=== PATIENT | male | born 1950 | race Caucasian/White ===

== ENCOUNTER 2019-04-06 08:47 | Inpatient (IN) | payer MEDICARE ==
[~2019-04-06] VITALS: Ht 182.9 cm; Wt 90.7 kg
--- NOTE | 2019-04-06 09:11 | PHYS DOC ---
Adult General Chief Complaint Chief Complaint: Congestion HPI HPI Patient is a 68 year old male patient without history of medical problem who presents with complaint of cough and congestion. Patient complaining of produ ctive cough with yellow sputum for the last one week associated with exertional shortness of breath or nasal congestion and sinus pressure, episodes of chills, decrease of appetite, generalized weakness. Patient denies chest pain, fever, nausea and vomiting, diarrhea, urinary symptom. Patient had sick contacts at home. Patient smokes 1.5 PPD x50. Patient had O2 sats of 92-3% at arrival to ER. Review of Systems Review of Systems Constitutional: Denies fever, reports chills [] Eyes: Denies change in visual acuity, redness, or eye pain [] HENT: Reports nasal congestion Respiratory: Reports cough and shortness of breath Cardiovascular: No additional information not addressed in HPI [] GI: Denies abdominal pain, nausea, vomiting, bloody stools or diarrhea [] : Denies dysuria or hematuria [] Musculoskeletal: Denies back pain or joint pain [] Integument: Denies rash or skin lesions [] Neurologic: Denies headache, focal weakness or sensory changes [] Endocrine: Denies polyuria or polydipsia [] All other systems were reviewed and found to be within normal limits, except as documented in this note. Current Medications Current Medications Current Medications Medications (Trade) Dose Ordered Sig/Jennifer Start Time Stop Time Status Last Admin Dose Admin Albuterol/ Ipratropium (Duoneb) 3 ml 1X ONCE 04/06/19 09:15 04/06/19 09:16 DC 04/06/19 09:27 3 ML Ceftriaxone Sodium (Rocephin) 1 gm 1X ONCE 04/06/19 10:15 04/06/19 10:16 DC 04/06/19 10:15 1 GM Methylprednisolone Sodium Succinate (SOLU-Medrol 125MG VIAL) 125 mg 1X ONCE 04/06/19 09:15 04/06/19 09:16 DC 04/06/19 09:30 125 MG Nicotine (Nicoderm Cq 21mg) 1 patch 1X STAT 04/06/19 10:26 04/06/19 10:28 DC 04/06/19 10:36 1 PATCH Sodium Chloride 1,000 ml @ 1,000 mls/hr 1X ONCE 04/06/19 10:15 04/06/19 11:14 04/06/19 10:14 1,000 MLS/HR Allergies Allergies Allergies Coded Allergies Type Severity Reaction Last Updated Verified No Known Drug Allergies 04/06/19 No Physical Exam Physical Exam Constitutional: Well developed, well nourished, mild distress, non-toxic appearance. [] HENT: Normocephalic, atraumatic, bilateral external ears normal, oropharynx moist, pharyngeal erythema, no oral exudates, nose normal. [] Eyes: PERRLA, EOMI, conjunctiva normal, no discharge. [] Neck: Normal range of motion, no tenderness, supple, no stridor. [] Cardiovascular:Heart rate regular rhythm, no murmur [] Lungs & Thorax: No respiratory distress, bilateral wheezing. Abdomen: Bowel sounds normal, soft, no tenderness, no masses, no pulsatile masses. [] Skin: Warm, dry, no erythema, no rash. [] Back: No tenderness, no CVA tenderness. [] Extremities: No tenderness, no cyanosis, no clubbing, ROM intact, no edema. [] Neurologic: Alert and oriented X 3, normal motor function, normal sensory function, no focal deficits noted. [] Psychologic: Affect normal, judgement normal, mood normal. [] Current Patient Data Vital Signs Vital Signs Date Time Temp Pulse Resp B/P (MAP) Pulse Ox O2 Delivery O2 Flow Rate FiO2 04/06/19 09:43 76 141/76 (97) 93 Room Air 04/06/19 08:52 98.9 20 98.9 Lab Values Laboratory Tests Test 04/06/19 09:10 04/06/19 09:17 Influenza Type A Antigen Negative (NEGATIVE) Influenza Type B Antigen Negative (NEGATIVE) White Blood Count 8.9 x10^3/uL (4.0-11.0) Red Blood Count 5.20 x10^6/uL (4.30-5.70) Hemoglobin 16.4 g/dL (13.0-17.5) Hematocrit 48.1 % (39.0-53.0) Mean Corpuscular Volume 93 fL (79-100) Mean Corpuscular Hemoglobin 32 pg (25-35) Mean Corpuscular Hemoglobin Concent 34 g/dL (31-37) Red Cell Distribution Width 14.0 % (11.5-14.5) Platelet Count 206 x10^3/uL (140-400) Neutrophils (%) (Auto) 75 % (31-73) H Lymphocytes (%) (Auto) 15 % (24-48) L Monocytes (%) (Auto) 9 % (0-9) Eosinophils (%) (Auto) 1 % (0-3) Basophils (%) (Auto) 1 % (0-3) Neutrophils # (Auto) 6.7 x10^3/uL (1.8-7.7) Lymphocytes # (Auto) 1.3 x10^3/uL (1.0-4.8) Monocytes # (Auto) 0.8 x10^3/uL (0.0-1.1) Eosinophils # (Auto) 0.0 x10^3/uL (0.0-0.7) Basophils # (Auto) 0.1 x10^3/uL (0.0-0.2) Sodium Level 140 mmol/L (136-145) Potassium Level 4.4 mmol/L (3.5-5.1) Chloride Level 99 mmol/L (98-107) Carbon Dioxide Level 34 mmol/L (21-32) H Anion Gap 7 (6-14) Blood Urea Nitrogen 10 mg/dL (8-26) Creatinine 0.8 mg/dL (0.7-1.3) Estimated GFR (Cockcroft-Gault) 95.6 BUN/Creatinine Ratio 13 (6-20) Glucose Level 105 mg/dL (70-99) H Lactic Acid Level 1.6 mmol/L (0.4-2.0) Calcium Level 9.2 mg/dL (8.5-10.1) Total Bilirubin 0.6 mg/dL (0.2-1.0) Aspartate Amino Transferase (AST) 19 U/L (15-37) Alanine Aminotransferase (ALT) 10 U/L (16-63) L Alkaline Phosphatase 66 U/L (46-116) Creatine Kinase 42 U/L (39-308) Troponin I Quantitative < 0.017 ng/mL (0.000-0.055) CB-Gul-W-Type Natriuretic Peptide 242 pg/mL (0-124) H Total Protein 7.3 g/dL (6.4-8.2) Albumin 3.5 g/dL (3.4-5.0) Albumin/Globulin Ratio 0.9 (1.0-1.7) L Laboratory Tests 04/06/19 09:17 Laboratory Tests 04/06/19 09:17 EKG EKG EKG interpreted by me. EKG at 0914 showed normal sinus rhythm at rate of 72, PVC,s, poor R-wave progress in anteroseptal leads, no acute ST and T-wave elevation. Radiology/Procedures Radiology/Procedures [facility] [address] [place], [place] [id number] IMAGING REPORT Signed PATIENT: YADIRA ARMIJO ACCOUNT: [id number] : 1950 LOCATION: ER AGE: 68 SEX: M EXAM STATUS: REG ER ORD. PHYSICIAN: ANNIKA ROMERO MD REASON: cough and shortness of breath PROCEDURE: CHEST PA & LATERAL Chest, PA and Lateral: Technique: PA and lateral views of the chest were obtained. History: Cough, shortness of breath. Comparison: None. Findings: The heart and pulmonary vasculature appear within normal limits. Hyperinflated lungs likely changes of COPD. Mild bibasilar lung airspace opacities likely atelectasis or infiltrates.. The pleural margins are clear. Impression: 1. Mild bibasilar lung airspace opacities likely atelectasis or infiltrates. 2. Mild hyperinflated lungs.. Electronically signed by: Floyd Mirza MD (04/06/2019 9:36 AM) [facility] DICTATED and SIGNED BY: FLOYD MIRZA MD DATE: 04/06/19935 Course & Med Decision Making Course & Med Decision Making Pertinent Labs and Imaging studies reviewed. (See chart for details) Evaluation of patient in ER showed 68-year-old male patient with long-standing history previous smoking without known diagnosis of COPD or other medical problem with complaining of cough and congestion and shortness of breath for the last 1 week after he had sick contacts at home. Patient had O2 sat of 92% at arrival to ER that dropped to 88% with mild activity. Chest x-ray was questionable for atelectasis versus infiltration. White count without lactic acid was unremarkable. Patient treated with DuoNeb, Solu-Medrol, IV fluid and Zofran with improvement of his condition. Because of hypoxia plan to admit patient. Patient requiring admission for further evaluation and treatment. Discussed with Dr. Chan who is in agreement with admission. Discussed findings and plan with patient and family, who acknowledge understanding and agreement. Dragon Disclaimer Dragon Disclaimer This electronic medical record was generated, in whole or in part, using a voice recognition dictation system. Departure Departure Impression: Primary Impression: COPD exacerbation Additional Impressions: Hypoxia Tobacco dependency Elevated brain natriuretic peptide (BNP) level Disposition: ADMITTED INPATIENT (at 1039) Admitting Physician: Sergio Chan (accepted admission at 1038, recommended to consult phone representative.) Condition: IMPROVED Problem Qualifiers ANNIKA ROMERO MD Apr 06, 2019 09:11
[2019-04-06] MEDS ORDERED: IPRATRPIUM/ALBUTEROL 0.5/2.5MG 3 ML NEBU. NEB ONE (09:15)
[2019-04-06] MEDS ORDERED: methylPREDNISolone SOD SUCC PF 125 MG/2 ML VIAL. IV ONE (09:15)
[2019-04-06 09:31] LABS: BASO # 0.1 x10^3/uL (0.0-0.2); BASO % 1 % (0-3); EOS % 1 % (0-3); HEMATOCRIT 48.1 % (39.0-53.0); HEMOGLOBIN 16.4 g/dL (13.0-17.5); LYMPH # 1.3 x10^3/uL (1.0-4.8); LYMPH % 15 % (24-48); MEAN CORPUSCULAR HEMOGLOBIN 32 pg (25-35); MEAN CORPUSCULAR HGB CONC 34 g/dL (31-37); MEAN CORPUSCULAR VOLUME 93 fL (79-100); MONO # 0.8 x10^3/uL (0.0-1.1); MONO % 9 % (0-9); NEUT # 6.7 x10^3/uL (1.8-7.7); NEUT % 75 % (31-73); PLATELET COUNT 206 x10^3/uL (140-400); WHITE BLOOD COUNT 8.9 x10^3/uL (4.0-11.0)
--- NOTE | 2019-04-06 09:39 | RAD ---
Chest, PA and Lateral: Technique: PA and lateral views of the chest were obtained. History: Cough, shortness of breath. Comparison: None. Findings: The heart and pulmonary vasculature appear within normal limits. Hyperinflated lungs likely changes of COPD. Mild bibasilar lung airspace opacities likely atelectasis or infiltrates.. The pleural margins are clear. Impression: 1. Mild bibasilar lung airspace opacities likely atelectasis or infiltrates. 2. Mild hyperinflated lungs.. Electronically signed by: Floyd Mirza MD (04/06/2019 9:36 AM) [facility]
[2019-04-06 09:41] LABS: CALCIUM 9.2 mg/dL (8.5-10.1); CREATININE 0.8 mg/dL (0.7-1.3); GFR 95.6; POTASSIUM 4.4 mmol/L (3.5-5.1)
[2019-04-06 09:49] LABS: INFLUENZA A PATIENT NEGATIVE (NEGATIVE); INFLUENZA B PATIENT NEGATIVE (NEGATIVE)
[2019-04-06 09:55] LABS: ALBUMIN 3.5 g/dL (3.4-5.0); ALBUMIN/GLOBULIN RATIO 0.9 (1.0-1.7); TOTAL BILIRUBIN 0.6 mg/dL (0.2-1.0); TOTAL PROTEIN 7.3 g/dL (6.4-8.2)
[2019-04-06] MEDS ORDERED: cefTRIAXone IV Push 1 GM VIAL. IVP ONE (10:15)
[2019-04-06] MEDS ORDERED: IV NORMAL SALINE 1000ML BAG 1,000 ML IV ONE (10:15)
[2019-04-06] MEDS ORDERED: NICOTINE 21MG PATCH. TD STA (10:26)
--- NOTE | 2019-04-06 11:18 | PDOC ---
Provider Note Provider Note history and physical dictated # [id number] JOSE MEZA MD Apr 06, 2019 11:18
[2019-04-06] MEDS ORDERED: AZITHROMYCIN 250 MG TABLET. PO ONE (11:30)
[2019-04-06] MEDS ORDERED: ACETAMINOPHEN 325 MG TABLET. PO PRN (11:30)
--- NOTE | 2019-04-06 11:40 | HP ---
ADMIT DATE: 04/06/2019 LOCATION: He will be going to room #664. HISTORY OF PRESENT ILLNESS: The patient is a 68-year-old white male who smokes 1-1/2 packs per day for 50 years. Notes a 1-week history of a cough productive of slightly yellow sputum without hemoptysis, who has dyspnea on exertion, shortness of breath at rest and some wheezing. He sought help at the [facility] Emergency Room with the Emergency Room doctor stated that oxygen saturations are around 88% while he was moving around on room air. He was started on oxygen 2 liters per nasal cannula. In addition, his chest x-ray showed evidence of COPD with hyperinflation of the lungs and bibasilar airspace opacities, atelectasis versus lung infiltrates. He denied any fever, chills or sweats or hemoptysis. He is therefore admitted for further evaluation of his COPD exacerbation and possible pneumonia versus acute bronchitis. ALLERGIES AND INTOLERANCES: None. MEDICATIONS: Include vitamin C 500 mg b.i.d., multiple vitamin once a day and aspirin 81 mg every day. PAST MEDICAL HISTORY: Significant for an appendectomy, tonsillectomy. He denies any history of diabetes mellitus, hypertension, hyperlipidemia, myocardial infarction, cerebrovascular accident, congestive heart failure, rheumatic fever, syncope, seizures, peptic ulcer disease, asthma, kidney stones, bleeding disorders or viral hepatitis. SOCIAL HISTORY: He drinks alcohol occasionally and smokes 1/2 pack of cigarettes a day for 50 years. He is . FAMILY HISTORY: Noncontributory. REVIEW OF SYSTEMS: GENERAL: He denies any fever, chills or sweats in the last 3 days. CARDIOVASCULAR: No chest pain. PULMONARY: Had shortness of breath and cough. GASTROINTESTINAL: No constipation. ENDOCRINE: No diabetes mellitus. SKIN: No rashes. The rest of systems reviewed are negative except as stated in history of present illness. PHYSICAL EXAMINATION: VITAL SIGNS: Temperature is 98.9 degrees, apical pulse regular 84, respiratory rate is 20, blood pressure is 148/92 and his oxygen saturation 93% on 3 liters per nasal cannula. HEENT: Eyes: Gaze is conjugate. Extraocular muscles are intact. Mouth: Tongue is midline. NECK: Shows no cervical lymphadenopathy or thyroid enlargement or carotid bruits. HEART: Reveals an S1, S2. There is no S3 or murmur. LUNGS: Reveal decreased breath sounds bilaterally with expiratory wheezes. ABDOMEN: Soft with no hepatosplenomegaly, masses or tenderness. EXTREMITIES: Lower extremities without edema. SKIN: No rashes. Examination of his feet, both feet are warm. NEUROLOGIC: Reveals no focal weakness in arms or legs. LABORATORY DATA: Review of his laboratory tests; his white count is 8.9, hemoglobin 16.4 with a platelet count 206,000, 75 polys and 15 lymphocytes. Sodium 140, potassium 4.4, chloride 99, total CO2 of 34, BUN 10, creatinine 0.8, blood sugar 105. Liver function tests normal. Troponin level less than 0.017. ProBNP of 242. Albumin 3.5. Lactic acid level 1.6. Influenza A and B were screen was negative. The chest x-ray showed hyperinflation with mild bibasilar lung opacities consistent with atelectasis in lung infiltrates. Electrocardiogram showed normal sinus rhythm with no acute change. ASSESSMENT: 1. Chronic obstructive pulmonary disease exacerbation secondary to acute bronchitis. 2. Acute bronchitis. 3. Acute hypoxic respiratory failure. PLAN: At this time is to admit him to the hospital as a full admit for IV antibiotics and a sputum culture. We will also treat him with budesonide and DuoNeb nebulize treatments and IV Solu-Medrol. We will also get a CAT scan of the chest to rule out any type of lung mass and also rule out pneumonia. Can order SCDs for deep vein thrombosis prophylaxis. He was told to discontinue his baby aspirin because he does not have any previous history of stroke or myocardial infarction or transient ischemic attack or peripheral arterial disease. Consult Dr. Sexton for Pulmonary. Continue with his oxygen. We will also get an echocardiogram. JOSE MEZA MD DR: ANNA/sarah JOB#: [id number] / [id number]
[2019-04-06] MEDS: IPRATRPIUM/ALBUTEROL 0.5/2.5MG 3 ML NEBU. NEB SCH ×3 (12:00→20:49)
[2019-04-06] MEDS: NICOTINE 21MG PATCH. TD SCH (12:00)
[2019-04-06 12:06] VITALS: BP 140/80
--- NOTE | 2019-04-06 13:24 | PDOC ---
PULMONARY PROGRESS NOTES Vitals Vital Signs Date Time Temp Pulse Resp B/P (MAP) Pulse Ox O2 Delivery O2 Flow Rate FiO2 04/06/19 12:06 98.3 94 20 140/80 (100) 94 Nasal Cannula 3.0 98.3 Labs Laboratory Tests Test 04/06/19 09:10 04/06/19 09:17 Influenza Type A Antigen Negative (NEGATIVE) Influenza Type B Antigen Negative (NEGATIVE) White Blood Count 8.9 x10^3/uL (4.0-11.0) Red Blood Count 5.20 x10^6/uL (4.30-5.70) Hemoglobin 16.4 g/dL (13.0-17.5) Hematocrit 48.1 % (39.0-53.0) Mean Corpuscular Volume 93 fL (79-100) Mean Corpuscular Hemoglobin 32 pg (25-35) Mean Corpuscular Hemoglobin Concent 34 g/dL (31-37) Red Cell Distribution Width 14.0 % (11.5-14.5) Platelet Count 206 x10^3/uL (140-400) Neutrophils (%) (Auto) 75 % (31-73) Lymphocytes (%) (Auto) 15 % (24-48) Monocytes (%) (Auto) 9 % (0-9) Eosinophils (%) (Auto) 1 % (0-3) Basophils (%) (Auto) 1 % (0-3) Neutrophils # (Auto) 6.7 x10^3/uL (1.8-7.7) Lymphocytes # (Auto) 1.3 x10^3/uL (1.0-4.8) Monocytes # (Auto) 0.8 x10^3/uL (0.0-1.1) Eosinophils # (Auto) 0.0 x10^3/uL (0.0-0.7) Basophils # (Auto) 0.1 x10^3/uL (0.0-0.2) Sodium Level 140 mmol/L (136-145) Potassium Level 4.4 mmol/L (3.5-5.1) Chloride Level 99 mmol/L (98-107) Carbon Dioxide Level 34 mmol/L (21-32) Anion Gap 7 (6-14) Blood Urea Nitrogen 10 mg/dL (8-26) Creatinine 0.8 mg/dL (0.7-1.3) Estimated GFR (Cockcroft-Gault) 95.6 BUN/Creatinine Ratio 13 (6-20) Glucose Level 105 mg/dL (70-99) Lactic Acid Level 1.6 mmol/L (0.4-2.0) Calcium Level 9.2 mg/dL (8.5-10.1) Total Bilirubin 0.6 mg/dL (0.2-1.0) Aspartate Amino Transf (AST/SGOT) 19 U/L (15-37) Alanine Aminotransferase (ALT/SGPT) 10 U/L (16-63) Alkaline Phosphatase 66 U/L (46-116) Creatine Kinase 42 U/L (39-308) Troponin I Quantitative < 0.017 ng/mL (0.000-0.055) YW-Vyl-H-Type Natriuretic Peptide 242 pg/mL (0-124) Total Protein 7.3 g/dL (6.4-8.2) Albumin 3.5 g/dL (3.4-5.0) Albumin/Globulin Ratio 0.9 (1.0-1.7) Laboratory Tests Test 04/06/19 09:10 04/06/19 09:17 Influenza Type A Antigen Negative (NEGATIVE) Influenza Type B Antigen Negative (NEGATIVE) White Blood Count 8.9 x10^3/uL (4.0-11.0) Red Blood Count 5.20 x10^6/uL (4.30-5.70) Hemoglobin 16.4 g/dL (13.0-17.5) Hematocrit 48.1 % (39.0-53.0) Mean Corpuscular Volume 93 fL (79-100) Mean Corpuscular Hemoglobin 32 pg (25-35) Mean Corpuscular Hemoglobin Concent 34 g/dL (31-37) Red Cell Distribution Width 14.0 % (11.5-14.5) Platelet Count 206 x10^3/uL (140-400) Neutrophils (%) (Auto) 75 % (31-73) Lymphocytes (%) (Auto) 15 % (24-48) Monocytes (%) (Auto) 9 % (0-9) Eosinophils (%) (Auto) 1 % (0-3) Basophils (%) (Auto) 1 % (0-3) Neutrophils # (Auto) 6.7 x10^3/uL (1.8-7.7) Lymphocytes # (Auto) 1.3 x10^3/uL (1.0-4.8) Monocytes # (Auto) 0.8 x10^3/uL (0.0-1.1) Eosinophils # (Auto) 0.0 x10^3/uL (0.0-0.7) Basophils # (Auto) 0.1 x10^3/uL (0.0-0.2) Sodium Level 140 mmol/L (136-145) Potassium Level 4.4 mmol/L (3.5-5.1) Chloride Level 99 mmol/L (98-107) Carbon Dioxide Level 34 mmol/L (21-32) Anion Gap 7 (6-14) Blood Urea Nitrogen 10 mg/dL (8-26) Creatinine 0.8 mg/dL (0.7-1.3) Estimated GFR (Cockcroft-Gault) 95.6 BUN/Creatinine Ratio 13 (6-20) Glucose Level 105 mg/dL (70-99) Lactic Acid Level 1.6 mmol/L (0.4-2.0) Calcium Level 9.2 mg/dL (8.5-10.1) Total Bilirubin 0.6 mg/dL (0.2-1.0) Aspartate Amino Transf (AST/SGOT) 19 U/L (15-37) Alanine Aminotransferase (ALT/SGPT) 10 U/L (16-63) Alkaline Phosphatase 66 U/L (46-116) Creatine Kinase 42 U/L (39-308) Troponin I Quantitative < 0.017 ng/mL (0.000-0.055) UN-Lpu-L-Type Natriuretic Peptide 242 pg/mL (0-124) Total Protein 7.3 g/dL (6.4-8.2) Albumin 3.5 g/dL (3.4-5.0) Albumin/Globulin Ratio 0.9 (1.0-1.7) Impression . note dictated agree wtih current rx ct pending NIHARIKA COATS MD Apr 06, 2019 13:24
[2019-04-06] MEDS: methylPREDNISolone SOD SUCC PF 40 MG/ML VIAL. IV SCH ×2 (14:00→21:23)
--- NOTE | 2019-04-06 15:18 | RAD ---
Examination: CT chest without contrast HISTORY: History of pneumonia, lung mass COMPARISON: None available TECHNIQUE: Axial CT images of the chest were performed without contrast. Coronal and sagittal reformats are performed Exposure: One or more of the following individualized dose reduction techniques were utilized for this examination: 1. Automated exposure control 2. Adjustment of the mA and/or kV according to patient size 3. Use of iterative reconstruction technique FINDINGS: There is a 2 cm hypodense nodule identified in the right lobe of the thyroid gland. The central airways are patent. The ascending aorta measures 4 cm in transverse dimension. Coronary artery calcifications identified. No radiologically significant mediastinal lymphadenopathy. Mild hyperinflated bilateral lungs. Mild bibasilar lung atelectasis. There is a 5 mm nodule identified in the right middle lobe and right lower lobe of the lung. The visualized noncontrasted liver, spleen, adrenals grossly appears unremarkable. The stomach is mildly distended Partially visualized minimal fat stranding identified about the bilateral kidneys. Punctate 2 mm calculus right kidney. Mild degenerative changes thoracic spine. IMPRESSION: 1. 5 mm nodule identified in the right middle lobe of the lung and right lower lobe of the lung. Follow-up per Fleischner Society guidelines with a follow-up CT in 6-12 months. 2. Mild hyperinflated lungs. 3. Punctate 2 mm calculus right kidney. There is minimal fat stranding identified about the bilateral kidneys, nonspecific could be due to medical renal disease or urinary tract infection. Correlate with urine analysis. 4. Mild ascending aortic aneurysm. 5. 2 cm hypodense nodule identified in the right lobe of the thyroid gland. Recommend follow-up nonemergent ultrasound thyroid. Electronically signed by: Floyd Mirza MD (04/06/2019 3:16 PM) [facility]
[2019-04-06 15:45] VITALS: BP 124/81
[2019-04-06 19:35] VITALS: BP 117/71
[2019-04-06] MEDS: BUDESONIDE 0.5 MG/2 ML NEBU. NEB SCH (20:49)
[2019-04-06] MEDS: FAMOTIDINE 20 MG TABLET. PO SCH (21:23)
--- NOTE | 2019-04-06 22:13 | CONS ---
DATE OF CONSULTATION: 04/06/2019 ATTENDING PHYSICIAN: Sergio Chan MD REASON FOR CONSULTATION: The patient was seen in pulmonary consultation at the request of Dr. Chan for increasing shortness of air and chest x-ray abnormality. HISTORY OF PRESENT ILLNESS: The patient is a 68-year-old with a history of tobacco use 1-1/2 packs of 50 years. No documented history of COPD, no acute exacerbations of COPD in the last several years. In fact, he has never been in the hospital with lung disease. He presented with increasing shortness of breath, cough productive of discolored sputum. His had similar type of symptoms. The patient is up-to-date on his Pneumovax. He has not had his flu vaccination. Upon arrival to the Emergency Room, he was severely short of breath, using accessory muscles to breathe. He was evaluated and admitted. His serology for influenza was negative. His electrolytes were noted. White count was normal. Chest x-ray revealed basilar infiltrates. I was asked to see him in consultation. PAST MEDICAL HISTORY: Otherwise unremarkable. No prior coronary artery disease. It is just remarkable for COPD, tobacco dependence. REVIEW OF SYSTEMS: CONSTITUTIONAL: No fever or chills. EYES: No change in visual acuity. HENT: No nasal congestion or sore throat. PULMONARY: As indicated above. CARDIOVASCULAR: No chest pain or pressure. GASTROINTESTINAL: No nausea, vomiting, diarrhea. GENITOURINARY: No dysuria or frequency. MUSCULOSKELETAL: No localized muscle aches or joint pains. SKIN: No new skin rashes. NEUROLOGIC: No headaches, diplopia or blurred vision. SOCIAL HISTORY: He continues to smoke. No history of alcoholism. FAMILY HISTORY: No family history of lung disorders. CURRENT MEDICATIONS: List was reviewed. ALLERGIES: No known drug allergies. PHYSICAL EXAMINATION: GENERAL: The patient appeared to be as his stated age. VITAL SIGNS: Stable. Current saturation on 3 liters was 91%. HEENT: Eyes, the sclerae were nonicteric. NECK: Jugular venous distention was not elevated. No lymphadenopathy. CHEST: Full expansion. LUNGS: Coarse breath sounds, rales in the bases. CARDIOVASCULAR: Regular rate and rhythm with S1, S2, no S3. ABDOMEN: Soft, nontender, nondistended. EXTREMITIES: No clubbing, cyanosis or edema. NEUROLOGICAL: The patient was awake, alert, following commands. A detailed neuro exam was not performed. LABORATORY DATA: Labs and chest x-ray reviewed as indicated above. IMPRESSION: 1. Progressive dyspnea secondary to acute exacerbation of chronic obstructive pulmonary disease. 2. Clinical pneumonia, chest x-ray abnormal with basilar infiltrates compatible with pneumonia, possible gram negative. 3. Acute nonspecific bronchitis. 4. Acute respiratory failure. PLAN: 1. Continue current IV antibiotics and steroids. 2. CT chest. 3. Outpatient polysomnogram. 4. Follow up in the office once the patient is discharged from the hospital. He will require a 6-minute walk prior to discharge. I do appreciate the privilege in sharing in his care. NIHARIKA COATS MD DR: ROLO/sarah JOB#: [id number] / [id number]
[2019-04-06 23:35] VITALS: BP 121/61
[2019-04-07 03:35] VITALS: BP 114/62
[2019-04-07 05:28] LABS: BASO % 0 % (0-3); EOS % 0 % (0-3); HEMATOCRIT 43.7 % (39.0-53.0); HEMOGLOBIN 14.7 g/dL (13.0-17.5); LYMPH # 0.6 x10^3/uL (1.0-4.8); LYMPH % 7 % (24-48); MEAN CORPUSCULAR HEMOGLOBIN 31 pg (25-35); MEAN CORPUSCULAR HGB CONC 34 g/dL (31-37); MEAN CORPUSCULAR VOLUME 92 fL (79-100); MONO # 0.3 x10^3/uL (0.0-1.1); MONO % 3 % (0-9); NEUT # 7.9 x10^3/uL (1.8-7.7); NEUT % 90 % (31-73); PLATELET COUNT 198 x10^3/uL (140-400); RED BLOOD COUNT 4.73 x10^6/uL (4.30-5.70); RED CELL DISTRIBUTION WIDTH 13.2 % (11.5-14.5); WHITE BLOOD COUNT 8.8 x10^3/uL (4.0-11.0)
[2019-04-07 05:36] LABS: CALCIUM 8.8 mg/dL (8.5-10.1); CREATININE 0.6 mg/dL (0.7-1.3); GFR 133.2; POTASSIUM 4.2 mmol/L (3.5-5.1)
[2019-04-07 05:51] LABS: CHOLESTEROL/HDL RATIO 3.3
[2019-04-07] MEDS: methylPREDNISolone SOD SUCC PF 40 MG/ML VIAL. IV SCH ×3 (05:56→21:52)
--- NOTE | 2019-04-07 06:34 | EKG ---
[facility] [address] [place] [address] Test Date: 2019-04-06 Test Time: 09:11:29 Pat Name: YADIRA ARMIJO Department: Room: Gender: M [employer]: : 1950 Requested By: ANNIKA ROMERO Order Number: [id number] Reading MD: Measurements Intervals [place] Rate: 73 P: -26 CA: 150 QRS: 57 QRSD: 68 T: 62 QT: 342 QTc: 380 Interpretive Statements SINUS RHYTHM ATRIAL PREMATURE COMPLEX(ES) QRS(T) CONTOUR ABNORMALITY CONSIDER ANTEROSEPTAL MYOCARDIAL DAMAGE POSSIBLY ABNORMAL ECG RI6.01 No previous ECG available for comparison
[2019-04-07 07:37] LABS: % BANDS 7 % (0-9); % LYMPHS 8 % (24-48); % MONOS 3 % (0-10); % SEGS 82 % (35-66); PLT ESTIMATE ADEQUATE (ADEQUATE)
[2019-04-07] MEDS: IPRATRPIUM/ALBUTEROL 0.5/2.5MG 3 ML NEBU. NEB SCH ×4 (07:42→19:27)
[2019-04-07] MEDS: BUDESONIDE 0.5 MG/2 ML NEBU. NEB SCH ×2 (07:42→19:27)
[2019-04-07 07:58] VITALS: BP 116/71
[2019-04-07] MEDS: cefTRIAXone IV Push 1 GM VIAL. IVP SCH (08:13)
[2019-04-07] MEDS: NICOTINE 21MG PATCH. TD SCH (08:14)
[2019-04-07] MEDS: MULTIVITAMIN with MINERAL TABLET. PO SCH (08:21)
[2019-04-07] MEDS: FAMOTIDINE 20 MG TABLET. PO SCH ×2 (08:21→21:51)
[2019-04-07] MEDS: AZITHROMYCIN 250 MG TABLET. PO SCH (08:22)
[2019-04-07] MEDS ORDERED: FLU VAX QS 2019-20 (36MOS+)/PF 0.5 ML SYRINGE. VAX IM ONE (09:00)
--- NOTE | 2019-04-07 10:06 | PDOC ---
PROGRESS NOTES Subjective Subjective feels better. less cough. ct chest results discussed. lab reviewed. Objective Objective Vital Signs Date Time Temp Pulse Resp B/P (MAP) Pulse Ox O2 Delivery O2 Flow Rate FiO2 04/07/19 08:00 Nasal Cannula 3.0 04/07/19 07:58 97.6 66 20 116/71 (86) 94 97.6 Intake and Output 04/07/19 07:00 Intake Total 1330 ml Output Total 1 ml Balance 1329 ml Intake Oral 1230 ml IV Total 100 ml Output Stool Total 1 ml # Voids 6 Physical Exam Abdomen: Soft Heart: Regular rate, Normal S1, Normal S2 Extremities: No edema General: Alert HEENT: Atraumatic Lungs: Other (decreased breath sounds) Neuro: Normal speech Psych/Mental Status: Mental status NL Skin: No rashes Assessment Assessment Problems1. Chronic obstructive pulmonary disease exacerbation secondary to acute bronchitis. 2. Acute bronchitis. 3. Acute hypoxic respiratory failure. 5 mm RUL and RLL lung nodule mild ascending aortic artery aneurysm 2 cm right thyroid lobe nodule cigarette smoker Medical Problems: (1) COPD exacerbation Status: Acute (2) Elevated brain natriuretic peptide (BNP) level Status: Acute (3) Hypoxia Status: Acute (4) Tobacco dependency Status: Acute Plan Plan of Care smoking cessation discussed continue oxygen and nebulizer rx and iv solumedrol and iv rocephin and zithromax thyroid ultrasound repeat ct chest in 6 to 12 months. discussed with patient echo pending Comment Review of Relevant I have reviewed the following items real (where applicable) has been applied. Labs Laboratory Tests Test 04/06/19 09:10 04/06/19 09:17 04/07/19 03:25 Influenza Type A Antigen Negative (NEGATIVE) Influenza Type B Antigen Negative (NEGATIVE) White Blood Count 8.9 x10^3/uL (4.0-11.0) 8.8 x10^3/uL (4.0-11.0) Red Blood Count 5.20 x10^6/uL (4.30-5.70) 4.73 x10^6/uL (4.30-5.70) Hemoglobin 16.4 g/dL (13.0-17.5) 14.7 g/dL (13.0-17.5) Hematocrit 48.1 % (39.0-53.0) 43.7 % (39.0-53.0) Mean Corpuscular Volume 93 fL (79-100) 92 fL (79-100) Mean Corpuscular Hemoglobin 32 pg (25-35) 31 pg (25-35) Mean Corpuscular Hemoglobin Concent 34 g/dL (31-37) 34 g/dL (31-37) Red Cell Distribution Width 14.0 % (11.5-14.5) 13.2 % (11.5-14.5) Platelet Count 206 x10^3/uL (140-400) 198 x10^3/uL (140-400) Neutrophils (%) (Auto) 75 % (31-73) 90 % (31-73) Lymphocytes (%) (Auto) 15 % (24-48) 7 % (24-48) Monocytes (%) (Auto) 9 % (0-9) 3 % (0-9) Eosinophils (%) (Auto) 1 % (0-3) 0 % (0-3) Basophils (%) (Auto) 1 % (0-3) 0 % (0-3) Neutrophils # (Auto) 6.7 x10^3/uL (1.8-7.7) 7.9 x10^3/uL (1.8-7.7) Lymphocytes # (Auto) 1.3 x10^3/uL (1.0-4.8) 0.6 x10^3/uL (1.0-4.8) Monocytes # (Auto) 0.8 x10^3/uL (0.0-1.1) 0.3 x10^3/uL (0.0-1.1) Eosinophils # (Auto) 0.0 x10^3/uL (0.0-0.7) 0.0 x10^3/uL (0.0-0.7) Basophils # (Auto) 0.1 x10^3/uL (0.0-0.2) 0.0 x10^3/uL (0.0-0.2) Sodium Level 140 mmol/L (136-145) 141 mmol/L (136-145) Potassium Level 4.4 mmol/L (3.5-5.1) 4.2 mmol/L (3.5-5.1) Chloride Level 99 mmol/L (98-107) 102 mmol/L (98-107) Carbon Dioxide Level 34 mmol/L (21-32) 31 mmol/L (21-32) Anion Gap 7 (6-14) 8 (6-14) Blood Urea Nitrogen 10 mg/dL (8-26) 11 mg/dL (8-26) Creatinine 0.8 mg/dL (0.7-1.3) 0.6 mg/dL (0.7-1.3) Estimated GFR (Cockcroft-Gault) 95.6 133.2 BUN/Creatinine Ratio 13 (6-20) Glucose Level 105 mg/dL (70-99) 127 mg/dL (70-99) Lactic Acid Level 1.6 mmol/L (0.4-2.0) Calcium Level 9.2 mg/dL (8.5-10.1) 8.8 mg/dL (8.5-10.1) Total Bilirubin 0.6 mg/dL (0.2-1.0) Aspartate Amino Transf (AST/SGOT) 19 U/L (15-37) Alanine Aminotransferase (ALT/SGPT) 10 U/L (16-63) Alkaline Phosphatase 66 U/L (46-116) Creatine Kinase 42 U/L (39-308) Troponin I Quantitative < 0.017 ng/mL (0.000-0.055) DA-Hcx-I-Type Natriuretic Peptide 242 pg/mL (0-124) Total Protein 7.3 g/dL (6.4-8.2) Albumin 3.5 g/dL (3.4-5.0) Albumin/Globulin Ratio 0.9 (1.0-1.7) Segmented Neutrophils % 82 % (35-66) Band Neutrophils % 7 % (0-9) Lymphocytes % 8 % (24-48) Monocytes % 3 % (0-10) Platelet Estimate Adequate (ADEQUATE) Triglycerides Level 43 mg/dL (0-150) Cholesterol Level 129 mg/dL (0-200) LDL Cholesterol, Calculated 81 mg/dL (0-100) VLDL Cholesterol, Calculated 9 mg/dL (0-40) Non-HDL Cholesterol Calculated 90 mg/dL (0-129) HDL Cholesterol 39 mg/dL (40-60) Cholesterol/HDL Ratio 3.3 Laboratory Tests Test 04/07/19 03:25 White Blood Count 8.8 x10^3/uL (4.0-11.0) Red Blood Count 4.73 x10^6/uL (4.30-5.70) Hemoglobin 14.7 g/dL (13.0-17.5) Hematocrit 43.7 % (39.0-53.0) Mean Corpuscular Volume 92 fL (79-100) Mean Corpuscular Hemoglobin 31 pg (25-35) Mean Corpuscular Hemoglobin Concent 34 g/dL (31-37) Red Cell Distribution Width 13.2 % (11.5-14.5) Platelet Count 198 x10^3/uL (140-400) Neutrophils (%) (Auto) 90 % (31-73) Lymphocytes (%) (Auto) 7 % (24-48) Monocytes (%) (Auto) 3 % (0-9) Eosinophils (%) (Auto) 0 % (0-3) Basophils (%) (Auto) 0 % (0-3) Neutrophils # (Auto) 7.9 x10^3/uL (1.8-7.7) Lymphocytes # (Auto) 0.6 x10^3/uL (1.0-4.8) Monocytes # (Auto) 0.3 x10^3/uL (0.0-1.1) Eosinophils # (Auto) 0.0 x10^3/uL (0.0-0.7) Basophils # (Auto) 0.0 x10^3/uL (0.0-0.2) Segmented Neutrophils % 82 % (35-66) Band Neutrophils % 7 % (0-9) Lymphocytes % 8 % (24-48) Monocytes % 3 % (0-10) Platelet Estimate Adequate (ADEQUATE) Sodium Level 141 mmol/L (136-145) Potassium Level 4.2 mmol/L (3.5-5.1) Chloride Level 102 mmol/L (98-107) Carbon Dioxide Level 31 mmol/L (21-32) Anion Gap 8 (6-14) Blood Urea Nitrogen 11 mg/dL (8-26) Creatinine 0.6 mg/dL (0.7-1.3) Estimated GFR (Cockcroft-Gault) 133.2 Glucose Level 127 mg/dL (70-99) Calcium Level 8.8 mg/dL (8.5-10.1) Triglycerides Level 43 mg/dL (0-150) Cholesterol Level 129 mg/dL (0-200) LDL Cholesterol, Calculated 81 mg/dL (0-100) VLDL Cholesterol, Calculated 9 mg/dL (0-40) Non-HDL Cholesterol Calculated 90 mg/dL (0-129) HDL Cholesterol 39 mg/dL (40-60) Cholesterol/HDL Ratio 3.3 Microbiology 04/06/19 Blood Culture - Preliminary, Resulted NO GROWTH AFTER 1 DAY Medications Current Medications Albuterol/ Ipratropium (Duoneb) 3 ml 1X ONCE NEB Last administered on 04/06/19at 09:27; Start 04/06/19 at 09:15; Stop 04/06/19 at 09:16; Status DC Methylprednisolone Sodium Succinate (SOLU-Medrol 125MG VIAL) 125 mg 1X ONCE IV Last administered on 04/06/19at 09:30; Start 04/06/19 at 09:15; Stop 04/06/19 at 09:16; Status DC Ceftriaxone Sodium (Rocephin) 1 gm 1X ONCE IVP Last administered on 04/06/19at 10:15; Start 04/06/19 at 10:15; Stop 04/06/19 at 10:16; Status DC Sodium Chloride 1,000 ml @ 1,000 mls/hr 1X ONCE IV Last administered on 04/06/19at 10:14; Start 04/06/19 at 10:15; Stop 04/06/19 at 11:14; Status DC Nicotine (Nicoderm Cq 21mg) 1 patch 1X STAT TD Last administered on 04/06/19at 10:36; Start 04/06/19 at 10:26; Stop 04/06/19 at 10:28; Status DC Nicotine (Nicoderm Cq 21mg) 1 patch DAILY TD Last administered on 04/07/19at 08:14; Start 04/06/19 at 12:00 Ceftriaxone Sodium (Rocephin) 1 gm DAILY IVP Last administered on 04/07/19at 08:13; Start 04/07/19 at 09:00 Azithromycin (Zithromax) 500 mg 1X ONCE PO Last administered on 04/06/19at 11:37; Start 04/06/19 at 11:30; Stop 04/06/19 at 11:31; Status DC Azithromycin (Zithromax) 250 mg DAILY PO Last administered on 04/07/19at 08:22; Start 04/07/19 at 09:00 Methylprednisolone Sodium Succinate (SOLU-Medrol 40MG VIAL) 40 mg Q8HRS IV Last administered on 04/07/19at 05:56; Start 04/06/19 at 14:00 Albuterol/ Ipratropium (Duoneb) 3 ml RTQID NEB Last administered on 04/07/19 07:42; Start 04/06/19 at 12:00 Budesonide (Pulmicort) 0.5 mg RTBID NEB Last administered on 04/07/19 07:42; Start 04/06/19 at 20:00 Acetaminophen (Tylenol) 650 mg PRN Q6HRS PRN PO MILD PAIN / TEMP; Start 04/06/19 at 11:30 Famotidine (Pepcid) 20 mg BID PO Last administered on 04/07/19 08:21; Start 04/06/19 at 21:00 Multivitamins (Thera M Plus) 1 tab DAILY PO Last administered on 04/07/19 08:21; Start 04/07/19 at 09:00 Influenza Virus Vaccine Quadrival (Afluria Quad 2019-20 (3yr Up) Syringe) 0.5 ml ONCE ONCE VAX IM Last administered on 04/07/19 08:20; Start 04/07/19 at 09:00; Stop 04/07/19 at 09:01; Status DC Vitals/I & O Vital Sign - Last 24 Hours 04/06/19 04/06/19 04/06/19 04/06/19 10:13 10:43 11:13 11:45 Pulse 82 84 80 Resp 19 B/P (MAP) 151/79 (103) 148/92 (110) 138/73 (94) Pulse Ox 93 93 93 O2 Delivery Nasal Cannula Nasal Cannula Nasal Cannula Nasal Cannula O2 Flow Rate 3.0 3.0 3.0 3.0 04/06/19 04/06/19 04/06/19 04/06/19 12:06 15:45 15:47 19:35 Temp 98.3 98.3 98.1 98.3 98.3 98.1 Pulse 94 88 87 Resp 20 20 18 B/P (MAP) 140/80 (100) 124/81 (95) 117/71 (86) Pulse Ox 94 93 92 93 O2 Delivery Nasal Cannula Nasal Cannula Nasal Cannula Nasal Cannula O2 Flow Rate 3.0 3.0 3.0 3.0 04/06/19 04/06/19 04/06/19 04/07/19 20:10 20:52 23:35 03:35 Temp 97.8 97.6 97.8 97.6 Pulse 79 85 Resp 18 18 B/P (MAP) 121/61 (81) 114/62 (79) Pulse Ox 91 94 92 O2 Delivery Nasal Cannula Nasal Cannula Nasal Cannula Nasal Cannula O2 Flow Rate 3.0 3.0 3.0 3.0 04/07/19 04/07/19 04/07/19 07:42 07:58 08:00 Temp 97.6 97.6 Pulse 66 Resp 20 B/P (MAP) 116/71 (86) Pulse Ox 96 94 O2 Delivery Nasal Cannula Nasal Cannula Nasal Cannula O2 Flow Rate 3.0 3.0 3.0 Intake and Output 04/06/19 04/06/19 04/07/19 15:00 23:00 07:00 Intake Total 100 ml 480 ml 750 ml Output Total 1 ml Balance 100 ml 479 ml 750 ml JOSE MEZA MD Apr 07, 2019 10:06
--- NOTE | 2019-04-07 10:34 | NUR ---
SW following pt for dc planning. Chart reviewed and discussed with RN. Pt lives at home with significant other. Pulmonary following. Pt currently on 3l 02 and will need 6min walk prior discharge. SW will continue to follow.
[2019-04-07 11:27] VITALS: BP 117/67
--- NOTE | 2019-04-07 11:45 | PDOC ---
PULMONARY PROGRESS NOTES Subjective LESS COUGH NO SOA Vitals Vital Signs Date Time Temp Pulse Resp B/P (MAP) Pulse Ox O2 Delivery O2 Flow Rate FiO2 04/07/19 11:30 93 Nasal Cannula 2.0 04/07/19 11:27 97.9 85 20 117/67 (84) 97.9 General: Alert, No acute distress Lungs: Wheezing (faint ) Cardiovascular: S1 Abdomen: Soft Neuro Exam: Alert Extremities: No Edema Skin: Warm Labs Laboratory Tests Test 04/06/19 09:10 04/06/19 09:17 04/07/19 03:25 Influenza Type A Antigen Negative (NEGATIVE) Influenza Type B Antigen Negative (NEGATIVE) White Blood Count 8.9 x10^3/uL (4.0-11.0) 8.8 x10^3/uL (4.0-11.0) Red Blood Count 5.20 x10^6/uL (4.30-5.70) 4.73 x10^6/uL (4.30-5.70) Hemoglobin 16.4 g/dL (13.0-17.5) 14.7 g/dL (13.0-17.5) Hematocrit 48.1 % (39.0-53.0) 43.7 % (39.0-53.0) Mean Corpuscular Volume 93 fL (79-100) 92 fL (79-100) Mean Corpuscular Hemoglobin 32 pg (25-35) 31 pg (25-35) Mean Corpuscular Hemoglobin Concent 34 g/dL (31-37) 34 g/dL (31-37) Red Cell Distribution Width 14.0 % (11.5-14.5) 13.2 % (11.5-14.5) Platelet Count 206 x10^3/uL (140-400) 198 x10^3/uL (140-400) Neutrophils (%) (Auto) 75 % (31-73) 90 % (31-73) Lymphocytes (%) (Auto) 15 % (24-48) 7 % (24-48) Monocytes (%) (Auto) 9 % (0-9) 3 % (0-9) Eosinophils (%) (Auto) 1 % (0-3) 0 % (0-3) Basophils (%) (Auto) 1 % (0-3) 0 % (0-3) Neutrophils # (Auto) 6.7 x10^3/uL (1.8-7.7) 7.9 x10^3/uL (1.8-7.7) Lymphocytes # (Auto) 1.3 x10^3/uL (1.0-4.8) 0.6 x10^3/uL (1.0-4.8) Monocytes # (Auto) 0.8 x10^3/uL (0.0-1.1) 0.3 x10^3/uL (0.0-1.1) Eosinophils # (Auto) 0.0 x10^3/uL (0.0-0.7) 0.0 x10^3/uL (0.0-0.7) Basophils # (Auto) 0.1 x10^3/uL (0.0-0.2) 0.0 x10^3/uL (0.0-0.2) Sodium Level 140 mmol/L (136-145) 141 mmol/L (136-145) Potassium Level 4.4 mmol/L (3.5-5.1) 4.2 mmol/L (3.5-5.1) Chloride Level 99 mmol/L (98-107) 102 mmol/L (98-107) Carbon Dioxide Level 34 mmol/L (21-32) 31 mmol/L (21-32) Anion Gap 7 (6-14) 8 (6-14) Blood Urea Nitrogen 10 mg/dL (8-26) 11 mg/dL (8-26) Creatinine 0.8 mg/dL (0.7-1.3) 0.6 mg/dL (0.7-1.3) Estimated GFR (Cockcroft-Gault) 95.6 133.2 BUN/Creatinine Ratio 13 (6-20) Glucose Level 105 mg/dL (70-99) 127 mg/dL (70-99) Lactic Acid Level 1.6 mmol/L (0.4-2.0) Calcium Level 9.2 mg/dL (8.5-10.1) 8.8 mg/dL (8.5-10.1) Total Bilirubin 0.6 mg/dL (0.2-1.0) Aspartate Amino Transf (AST/SGOT) 19 U/L (15-37) Alanine Aminotransferase (ALT/SGPT) 10 U/L (16-63) Alkaline Phosphatase 66 U/L (46-116) Creatine Kinase 42 U/L (39-308) Troponin I Quantitative < 0.017 ng/mL (0.000-0.055) QX-Xja-W-Type Natriuretic Peptide 242 pg/mL (0-124) Total Protein 7.3 g/dL (6.4-8.2) Albumin 3.5 g/dL (3.4-5.0) Albumin/Globulin Ratio 0.9 (1.0-1.7) Segmented Neutrophils % 82 % (35-66) Band Neutrophils % 7 % (0-9) Lymphocytes % 8 % (24-48) Monocytes % 3 % (0-10) Platelet Estimate Adequate (ADEQUATE) Triglycerides Level 43 mg/dL (0-150) Cholesterol Level 129 mg/dL (0-200) LDL Cholesterol, Calculated 81 mg/dL (0-100) VLDL Cholesterol, Calculated 9 mg/dL (0-40) Non-HDL Cholesterol Calculated 90 mg/dL (0-129) HDL Cholesterol 39 mg/dL (40-60) Cholesterol/HDL Ratio 3.3 Laboratory Tests Test 04/07/19 03:25 White Blood Count 8.8 x10^3/uL (4.0-11.0) Red Blood Count 4.73 x10^6/uL (4.30-5.70) Hemoglobin 14.7 g/dL (13.0-17.5) Hematocrit 43.7 % (39.0-53.0) Mean Corpuscular Volume 92 fL (79-100) Mean Corpuscular Hemoglobin 31 pg (25-35) Mean Corpuscular Hemoglobin Concent 34 g/dL (31-37) Red Cell Distribution Width 13.2 % (11.5-14.5) Platelet Count 198 x10^3/uL (140-400) Neutrophils (%) (Auto) 90 % (31-73) Lymphocytes (%) (Auto) 7 % (24-48) Monocytes (%) (Auto) 3 % (0-9) Eosinophils (%) (Auto) 0 % (0-3) Basophils (%) (Auto) 0 % (0-3) Neutrophils # (Auto) 7.9 x10^3/uL (1.8-7.7) Lymphocytes # (Auto) 0.6 x10^3/uL (1.0-4.8) Monocytes # (Auto) 0.3 x10^3/uL (0.0-1.1) Eosinophils # (Auto) 0.0 x10^3/uL (0.0-0.7) Basophils # (Auto) 0.0 x10^3/uL (0.0-0.2) Segmented Neutrophils % 82 % (35-66) Band Neutrophils % 7 % (0-9) Lymphocytes % 8 % (24-48) Monocytes % 3 % (0-10) Platelet Estimate Adequate (ADEQUATE) Sodium Level 141 mmol/L (136-145) Potassium Level 4.2 mmol/L (3.5-5.1) Chloride Level 102 mmol/L (98-107) Carbon Dioxide Level 31 mmol/L (21-32) Anion Gap 8 (6-14) Blood Urea Nitrogen 11 mg/dL (8-26) Creatinine 0.6 mg/dL (0.7-1.3) Estimated GFR (Cockcroft-Gault) 133.2 Glucose Level 127 mg/dL (70-99) Calcium Level 8.8 mg/dL (8.5-10.1) Triglycerides Level 43 mg/dL (0-150) Cholesterol Level 129 mg/dL (0-200) LDL Cholesterol, Calculated 81 mg/dL (0-100) VLDL Cholesterol, Calculated 9 mg/dL (0-40) Non-HDL Cholesterol Calculated 90 mg/dL (0-129) HDL Cholesterol 39 mg/dL (40-60) Cholesterol/HDL Ratio 3.3 Impression . 1. Progressive dyspnea secondary to acute exacerbation of chronic obstructive pulmonary disease. 2. Acute bronchitis 3. No ct evidence of pneumonia 4. Acute respiratory failure. 5. Abnormal ct chest with 5 mm nodule RML/ RLL Plan . 1. Continue current IV antibiotics and steroids. 2. repeaat ct chest in 5-6 months 3. Outpatient polysomnogram. 4. Follow up in the office once the patient is discharged from the hospital. He will require a 6-minute walk prior to discharge. hopefullt dc home in am d/w I do appreciate the privilege in sharing in his care. MINI KAY MD Apr 07, 2019 11:45
--- NOTE | 2019-04-07 12:19 | RAD ---
Thyroid ultrasound study without comparison for thyroid nodule noted on CT scan of the chest. TECHNIQUE AND FINDINGS: Real-time grayscale and color Doppler evaluation of the thyroid gland is performed. The right lobe measures 5.9 x 3.0 x 3.4 cm and the left measures 4.5 x 2.0 x 2.2 cm. There is a large heterogeneous primarily solid nodule in the right lobe the thyroid gland with a focal cystic area inferiorly, measuring 4.0 x 2.7 x 3.1 cm. There are some coarse shadowing calcification centrally, and there is hyperemic flow throughout the nodule. The isthmus measures 6.5 mm in thickness and is normal. Left thyroid lobe is homogeneous in echotexture with normal color flow. IMPRESSION: 1. 4 cm hyperemic heterogeneous right thyroid nodule. Needle sampling is recommended. Electronically signed by: John Cerna MD (04/07/2019 12:16 PM) [id number]
--- NOTE | 2019-04-07 13:38 | CARD ---
MR#: [id number] Date of Study: 04/07/2019 Ordering Physician: JOSE MEZA, Referring Physician: JOSE MEZA, Tech: Adelina Tavarez APPROVED REPORT EXAM: Two-dimensional and M-mode echocardiogram with Doppler and color Doppler. Other Information Quality : AverageHR: 91bpm Technically limited study due to smoking. INDICATION COPD Chest Pain RISK FACTORS Hypertension 2D DIMENSIONS RVDd4.0 (2.9-3.5cm)Left Atrium(2D)4.4 (1.6-4.0cm) IVSd1.2 (0.7-1.1cm)Aortic Root(2D)3.7 (2.0-3.7cm) LVDd4.9 (3.9-5.9cm)LVOT Diameter2.2 (1.8-2.4cm) PWd1.4 (0.7-1.1cm)LVDs3.4 (2.5-4.0cm) FS (%) 30.8 %SV64.4 ml LVEF(%)58.2 (>50%) Aortic Valve AoV Peak Bandar.215.1cm/sAoV VTI38.0cm AO Peak GR.18.5mmHgLVOT Peak Bandar.217.6cm/s LVOT VTI 28.71cmAO Mean GR.10mmHg THERON (VMAX)2.87zd2KCD (VTI)2.87cm2 Mitral Valve MV E Mean Gr.3mmHg Pulmonary Valve PV Peak Kzbokiaz856.6cm/sPV Peak Grad.7mmHg Tricuspid Valve TR P. [id number]/sRAP [id number] TR Peak Gr.[id number] Pulmonary Vein S1 Bigtagoh78.8cm/sD2 Wrwmlkjt57.6cm/s LEFT VENTRICLE The left ventricle is normal size. There is mild to moderate concentric left ventricular hypertrophy. The left ventricular systolic function is normal. The Ejection Fraction is 55-60%. There is normal L V segmental wall motion. RIGHT VENTRICLE The right ventricle is normal size. There is normal right ventricular wall thickness. The right ventr icular systolic function is normal. ATRIA The left atrium is borderline dilated. The right atrium size is normal. The interatrial septum is int act with no evidence for an atrial septal defect or patent foramen ovale as noted on 2-D or Doppler i maging. AORTIC VALVE The aortic valve is not well visualized. Doppler and Color Flow revealed no significant aortic regurg itation. There is no significant aortic valvular stenosis. MITRAL VALVE The mitral valve is normal in structure and function. There is no evidence of mitral valve prolapse. There is no mitral valve stenosis. Doppler and Color-flow revealed trace mitral regurgitation. TRICUSPID VALVE The tricuspid valve is normal in structure and function. Doppler and Color Flow revealed trace tricus pid regurgitation with an estimated PAP of 53 mmHg. There is no tricuspid valve stenosis. PULMONIC VALVE The pulmonic valve is not well visualized. Doppler and Color Flow revealed no pulmonic valvular regur gitation. GREAT VESSELS The aortic root is normal in size. The IVC was not well visualized. PERICARDIAL EFFUSION There is no evidence of significant pericardial effusion. Critical Notification Critical Value: No <Conclusion> The left ventricular systolic function is normal. The Ejection Fraction is 55-60%. There is normal LV segmental wall motion. Trace mitral regurgitation. Trace tricuspid regurgitation with an estimated PAP of 53 mmHg. There is no evidence of significant pericardial effusion. Signed by : Jossue Terry, Electronically Approved : 04/07/2019 13:38:27
[2019-04-07 15:00] VITALS: BP 121/62
[2019-04-07 19:54] VITALS: BP 117/63
[2019-04-07] MEDS: LACTOBACILLUS RHAMNOSUS GG 1 CAPSULE. PO SCH (21:51)
[2019-04-07 23:29] VITALS: BP 121/67
[2019-04-08 03:56] VITALS: BP 143/79
[2019-04-08] MEDS: methylPREDNISolone SOD SUCC PF 40 MG/ML VIAL. IV SCH (06:56)
[2019-04-08 07:50] VITALS: BP 137/75
[2019-04-08] MEDS: BUDESONIDE 0.5 MG/2 ML NEBU. NEB SCH (08:00)
[2019-04-08] MEDS: IPRATRPIUM/ALBUTEROL 0.5/2.5MG 3 ML NEBU. NEB SCH ×2 (08:11→11:52)
[2019-04-08] MEDS: cefTRIAXone IV Push 1 GM VIAL. IVP SCH (08:35)
[2019-04-08] MEDS: AZITHROMYCIN 250 MG TABLET. PO SCH (08:35)
[2019-04-08] MEDS: NICOTINE 21MG PATCH. TD SCH (08:35)
[2019-04-08] MEDS: FAMOTIDINE 20 MG TABLET. PO SCH (08:35)
[2019-04-08] MEDS: LACTOBACILLUS RHAMNOSUS GG 1 CAPSULE. PO SCH (08:35)
[2019-04-08] MEDS: MULTIVITAMIN with MINERAL TABLET. PO SCH (08:36)
--- NOTE | 2019-04-08 10:16 | PDOC ---
PROGRESS NOTES Subjective Subjective feels better and wants to go home. off of oxygen now. will have 6 min walk today. discussed thyroid ultrasound showed a 4 cm nodule and needs that biopsied as out patient and discussed with nurse who will arrange that. not short of breath. Objective Objective Vital Signs Date Time Temp Pulse Resp B/P (MAP) Pulse Ox O2 Delivery O2 Flow Rate FiO2 04/08/19 08:12 90 Room Air 04/08/19 08:00 0.5 04/08/19 07:50 97.6 70 22 137/75 (95) 97.6 Intake and Output 04/08/19 07:00 Intake Total 760 ml Balance 760 ml Intake Oral 760 ml # Voids 4 Physical Exam Abdomen: Soft Heart: Regular rate, Normal S1, Normal S2 Extremities: No edema General: Alert HEENT: Atraumatic Lungs: Other (decreased breath sounds) Neuro: Normal speech Psych/Mental Status: Mental status NL Skin: No rashes Assessment Assessment Problems1. Chronic obstructive pulmonary disease exacerbation secondary to acute bronchitis.better 2. Acute bronchitis.better 3. Acute hypoxic respiratory failure.resolved at rest 5 mm RUL and RLL lung nodule mild ascending aortic artery aneurysm 2 cm right thyroid lobe nodule cigarette smoker Medical Problems: (1) COPD exacerbation Status: Acute (2) Elevated brain natriuretic peptide (BNP) level Status: Acute (3) Hypoxia Status: Acute (4) Tobacco dependency Status: Acute Plan Plan of Care switch to oral antibiotics and prednisone taper. ct chest in 6 months thyroid asp bx out patient nebulizer rx at home dismiss today 6 min walk d/c cigs Comment Review of Relevant I have reviewed the following items real (where applicable) has been applied. Labs Laboratory Tests Test 04/07/19 03:25 White Blood Count 8.8 x10^3/uL (4.0-11.0) Red Blood Count 4.73 x10^6/uL (4.30-5.70) Hemoglobin 14.7 g/dL (13.0-17.5) Hematocrit 43.7 % (39.0-53.0) Mean Corpuscular Volume 92 fL (79-100) Mean Corpuscular Hemoglobin 31 pg (25-35) Mean Corpuscular Hemoglobin Concent 34 g/dL (31-37) Red Cell Distribution Width 13.2 % (11.5-14.5) Platelet Count 198 x10^3/uL (140-400) Neutrophils (%) (Auto) 90 % (31-73) Lymphocytes (%) (Auto) 7 % (24-48) Monocytes (%) (Auto) 3 % (0-9) Eosinophils (%) (Auto) 0 % (0-3) Basophils (%) (Auto) 0 % (0-3) Neutrophils # (Auto) 7.9 x10^3/uL (1.8-7.7) Lymphocytes # (Auto) 0.6 x10^3/uL (1.0-4.8) Monocytes # (Auto) 0.3 x10^3/uL (0.0-1.1) Eosinophils # (Auto) 0.0 x10^3/uL (0.0-0.7) Basophils # (Auto) 0.0 x10^3/uL (0.0-0.2) Segmented Neutrophils % 82 % (35-66) Band Neutrophils % 7 % (0-9) Lymphocytes % 8 % (24-48) Monocytes % 3 % (0-10) Platelet Estimate Adequate (ADEQUATE) Sodium Level 141 mmol/L (136-145) Potassium Level 4.2 mmol/L (3.5-5.1) Chloride Level 102 mmol/L (98-107) Carbon Dioxide Level 31 mmol/L (21-32) Anion Gap 8 (6-14) Blood Urea Nitrogen 11 mg/dL (8-26) Creatinine 0.6 mg/dL (0.7-1.3) Estimated GFR (Cockcroft-Gault) 133.2 Glucose Level 127 mg/dL (70-99) Calcium Level 8.8 mg/dL (8.5-10.1) Triglycerides Level 43 mg/dL (0-150) Cholesterol Level 129 mg/dL (0-200) LDL Cholesterol, Calculated 81 mg/dL (0-100) VLDL Cholesterol, Calculated 9 mg/dL (0-40) Non-HDL Cholesterol Calculated 90 mg/dL (0-129) HDL Cholesterol 39 mg/dL (40-60) Cholesterol/HDL Ratio 3.3 Microbiology 04/06/19 Blood Culture - Preliminary, Resulted NO GROWTH AFTER 2 DAYS Medications Current Medications Albuterol/ Ipratropium (Duoneb) 3 ml 1X ONCE NEB Last administered on 04/06/19at 09:27; Start 04/06/19 at 09:15; Stop 04/06/19 at 09:16; Status DC Methylprednisolone Sodium Succinate (SOLU-Medrol 125MG VIAL) 125 mg 1X ONCE IV Last administered on 04/06/19at 09:30; Start 04/06/19 at 09:15; Stop 04/06/19 at 09:16; Status DC Ceftriaxone Sodium (Rocephin) 1 gm 1X ONCE IVP Last administered on 04/06/19at 10:15; Start 04/06/19 at 10:15; Stop 04/06/19 at 10:16; Status DC Sodium Chloride 1,000 ml @ 1,000 mls/hr 1X ONCE IV Last administered on 04/06/19at 10:14; Start 04/06/19 at 10:15; Stop 04/06/19 at 11:14; Status DC Nicotine (Nicoderm Cq 21mg) 1 patch 1X STAT TD Last administered on 04/06/19at 10:36; Start 04/06/19 at 10:26; Stop 04/06/19 at 10:28; Status DC Nicotine (Nicoderm Cq 21mg) 1 patch DAILY TD Last administered on 04/08/19 08:35; Start 04/06/19 at 12:00 Ceftriaxone Sodium (Rocephin) 1 gm DAILY IVP Last administered on 04/08/19 08:35; Start 04/07/19 at 09:00 Azithromycin (Zithromax) 500 mg 1X ONCE PO Last administered on 04/06/19at 11:37; Start 04/06/19 at 11:30; Stop 04/06/19 at 11:31; Status DC Azithromycin (Zithromax) 250 mg DAILY PO Last administered on 04/08/19 08:35; Start 04/07/19 at 09:00 Methylprednisolone Sodium Succinate (SOLU-Medrol 40MG VIAL) 40 mg Q8HRS IV Last administered on 04/08/19 06:56; Start 04/06/19 at 14:00 Albuterol/ Ipratropium (Duoneb) 3 ml RTQID NEB Last administered on 04/08/19 08:11; Start 04/06/19 at 12:00 Budesonide (Pulmicort) 0.5 mg RTBID NEB Last administered on 04/08/19 08:00; Start 04/06/19 at 20:00 Acetaminophen (Tylenol) 650 mg PRN Q6HRS PRN PO MILD PAIN / TEMP; Start 04/06/19 at 11:30 Famotidine (Pepcid) 20 mg BID PO Last administered on 04/08/19at 08:35; Start 04/06/19 at 21:00 Multivitamins (Thera M Plus) 1 tab DAILY PO Last administered on 04/08/19at 08:36; Start 04/07/19 at 09:00 Influenza Virus Vaccine Quadrival (Afluria Quad 2019-20 (3yr Up) Syringe) 0.5 ml ONCE ONCE VAX IM Last administered on 04/07/19 08:20; Start 04/07/19 at 09:00; Stop 04/07/19 at 09:01; Status DC Lactobacillus Rhamnosus (Culturelle) 1 cap BID PO Last administered on 04/08/19at 08:35; Start 04/07/19 at 21:00 Vitals/I & O Vital Sign - Last 24 Hours 04/07/19 04/07/19 04/07/19 04/07/19 11:27 11:30 15:00 15:39 Temp 97.9 98.1 97.9 98.1 Pulse 85 88 Resp 20 24 B/P (MAP) 117/67 (84) 121/62 (81) Pulse Ox 91 93 88 92 O2 Delivery Nasal Cannula Nasal Cannula Nasal Cannula Room Air O2 Flow Rate 2.0 2.0 04/07/19 04/07/19 04/07/19 04/07/19 19:30 19:54 20:00 23:29 Temp 98.0 97.5 98.0 97.5 Pulse 87 70 Resp 18 18 B/P (MAP) 117/63 (81) 121/67 (85) Pulse Ox 90 91 95 O2 Delivery Nasal Cannula Nasal Cannula Nasal Cannula O2 Flow Rate 0.5 5.0 3.0 0.5 04/08/19 04/08/19 04/08/19 04/08/19 03:56 07:50 08:00 08:12 Temp 98.1 97.6 98.1 97.6 Pulse 78 70 Resp 16 22 B/P (MAP) 143/79 (100) 137/75 (95) Pulse Ox 92 90 90 O2 Delivery Nasal Cannula Room Air Nasal Cannula Room Air O2 Flow Rate 0.5 0.5 04/08/19 08:12 Pulse Ox 90 O2 Delivery Room Air Intake and Output 04/07/19 04/07/19 04/08/19 15:00 23:00 07:00 Intake Total 560 ml 200 ml Balance 560 ml 200 ml JOSE MEZA MD Apr 08, 2019 10:16
[2019-04-08] MEDS ORDERED: AZIT250T6 PO (10:26)
[2019-04-08] MEDS ORDERED: PRED-220 PO (10:26)
[2019-04-08] MEDS ORDERED: MULT1TAB90 PO (10:26)
[2019-04-08] MEDS ORDERED: IPRA3AMP29 NEB (10:26)
--- NOTE | 2019-04-08 10:27 | DISCH ---
DISCHARGE INSTRUCTIONS Condition on Discharge Condition on Discharge: Stable Activity After Discharge Activity Instructions for Disc: Resume previous activity Diet after Discharge Diet after Discharge: Regular Follow-Up Follow up with: dr. meza next week Follow Up With: dr. mccarty in 2 weeks JOSE MEZA MD Apr 08, 2019 10:27
--- NOTE | 2019-04-08 10:32 | PDOC ---
Provider Note Provider Note discharge summary dictated [id number] JOSE MEZA MD Apr 08, 2019 10:32
--- NOTE | 2019-04-08 10:47 | PDOC ---
PULMONARY PROGRESS NOTES Subjective LESS COUGH mild SOA with exertion Vitals Vital Signs Date Time Temp Pulse Resp B/P (MAP) Pulse Ox O2 Delivery O2 Flow Rate FiO2 04/08/19 08:12 90 Room Air 04/08/19 08:00 0.5 04/08/19 07:50 97.6 70 22 137/75 (95) 97.6 General: Alert, No acute distress Lungs: Wheezing (faint , right side) Cardiovascular: S1 Abdomen: Soft Neuro Exam: Alert Extremities: No Edema Skin: Warm Labs Laboratory Tests Test 04/07/19 03:25 White Blood Count 8.8 x10^3/uL (4.0-11.0) Red Blood Count 4.73 x10^6/uL (4.30-5.70) Hemoglobin 14.7 g/dL (13.0-17.5) Hematocrit 43.7 % (39.0-53.0) Mean Corpuscular Volume 92 fL (79-100) Mean Corpuscular Hemoglobin 31 pg (25-35) Mean Corpuscular Hemoglobin Concent 34 g/dL (31-37) Red Cell Distribution Width 13.2 % (11.5-14.5) Platelet Count 198 x10^3/uL (140-400) Neutrophils (%) (Auto) 90 % (31-73) Lymphocytes (%) (Auto) 7 % (24-48) Monocytes (%) (Auto) 3 % (0-9) Eosinophils (%) (Auto) 0 % (0-3) Basophils (%) (Auto) 0 % (0-3) Neutrophils # (Auto) 7.9 x10^3/uL (1.8-7.7) Lymphocytes # (Auto) 0.6 x10^3/uL (1.0-4.8) Monocytes # (Auto) 0.3 x10^3/uL (0.0-1.1) Eosinophils # (Auto) 0.0 x10^3/uL (0.0-0.7) Basophils # (Auto) 0.0 x10^3/uL (0.0-0.2) Segmented Neutrophils % 82 % (35-66) Band Neutrophils % 7 % (0-9) Lymphocytes % 8 % (24-48) Monocytes % 3 % (0-10) Platelet Estimate Adequate (ADEQUATE) Sodium Level 141 mmol/L (136-145) Potassium Level 4.2 mmol/L (3.5-5.1) Chloride Level 102 mmol/L (98-107) Carbon Dioxide Level 31 mmol/L (21-32) Anion Gap 8 (6-14) Blood Urea Nitrogen 11 mg/dL (8-26) Creatinine 0.6 mg/dL (0.7-1.3) Estimated GFR (Cockcroft-Gault) 133.2 Glucose Level 127 mg/dL (70-99) Calcium Level 8.8 mg/dL (8.5-10.1) Triglycerides Level 43 mg/dL (0-150) Cholesterol Level 129 mg/dL (0-200) LDL Cholesterol, Calculated 81 mg/dL (0-100) VLDL Cholesterol, Calculated 9 mg/dL (0-40) Non-HDL Cholesterol Calculated 90 mg/dL (0-129) HDL Cholesterol 39 mg/dL (40-60) Cholesterol/HDL Ratio 3.3 Medications Active Scripts Medications Dose Route/Sig Max Daily Dose Days Date Category Prednisone (Prednisone) 10 Mg Tablet 1 Tab PO DAILY 04/08/19 Rx Thera-M Tablet (Multivits,Ca,Minerals/Iron/Fa) 1 Each Tablet 1 Tab PO DAILY 04/08/19 Rx Duoneb 0.5-3(2.5) Mg/3 Ml (Albuterol/Ipratropium) 3 Ml Ampul.neb 3 Ml NEB RTQID 04/08/19 Rx Azithromycin Tablet (Azithromycin) 250 Mg Tablet 250 Mg PO DAILY 04/08/19 Rx Impression . 1. Progressive dyspnea secondary to acute exacerbation of chronic obstructive pulmonary disease. improved 2. Acute bronchitis 3. No ct evidence of pneumonia 4. Acute respiratory failure. 5. Abnormal ct chest with 5 mm nodule RML/ RLL Plan . 1. change to PO antibiotics and steroids. 2. repeaat ct chest in 5-6 months 3. Outpatient polysomnogram. 4. Follow up in the office once the patient is discharged from the hospital. He will require a 6-minute walk prior to discharge. dc home TODAY. Pt wants to be home for rush stanton/ángel MINI KAY MD Apr 08, 2019 10:47
[2019-04-08 11:30] VITALS: BP 126/66
--- NOTE | 2019-04-08 11:53 | DS ---
DATE OF DISCHARGE: 04/08/2019 CONSULTANTS: Dr. Sexton and Dr. Bishop. FINAL DIAGNOSES: 1. Chronic obstructive pulmonary disease with acute exacerbation secondary to acute bronchitis. 2. Acute bronchitis. 3. Acute hypoxic respiratory failure. 4. A 5-mm right middle lobe and right lower lobe pulmonary nodule. 5. Mild ascending aortic aneurysm. 6. Right thyroid nodule. 7. Cigarette smoker. HOSPITAL COURSE: The patient is a 68-year-old white male who smokes 1-1/2 packs per day for 50 years, has 1-week history of cough productive of slightly yellow sputum without hemoptysis and notes dyspnea on exertion without chest pain and some wheezing. He sought help at the [facility] Emergency Room where his oxygen saturations were around 88% on room air. Subsequently, started on oxygen 2 liters per nasal cannula. His chest x-ray showed hyperinflation consistent with COPD and some bibasilar airspace opacities, atelectasis versus infiltrate, started on IV Rocephin and Zithromax. He was started on nebulizer treatments and IV Solu-Medrol. He denies any fever, chills, sweats, or hemoptysis. Seen in consultation by Dr. Sexton and Dr. Bishop. A CAT scan of the chest was done and it showed 5-mm nodule in right middle lobe and right lower lobe and he will have another CAT scan of chest in 6 months. Mild hyperinflated lungs consistent with COPD, mild ascending aortic aneurysm and a 2-cm hypodense nodule on the right lobe of the thyroid. Thyroid ultrasound showed a 4-cm nodule in the right lobe of the lung and he will have an outpatient aspiration biopsy of this and this was discussed with the patient, who understood. The nurse was also present. We will schedule that. He was seen by Dr. Bishop and Dr. Sexton in consultation. His breathing improved and he is off of oxygen on room air, but has a 6-minute walk. He will be dismissed to home today on Zithromax 250 mg every day for 2 more days, 2 tablets, no refill, prednisone taper 40 mg daily for 3 days, 30 mg daily for 3 days, 20 mg daily for 2 days, 10 mg daily for 2 days and 5 mg daily for 2 days and will stop the prednisone; DuoNeb nebulizer treatments and will have a nebulizer for home use written by Dr. Bishop and will be on DuoNeb nebulized treatments q.i.d. He will have an outpatient aspiration and thyroid biopsy to be arranged by the nurse after he leaves the hospital, hopefully this will be done this week or next week and he will make an appointment to see Dr. Chan in the office in [address] Bishop in 2 weeks and he will have a CAT scan of the chest in 6 months and this was discussed with him. Follow up with his right middle lobe, right lower lobe lung nodule. He discussed the importance of following up a CAT scan to make sure his nodules are not malignant and also follow up with a thyroid biopsy, his aspiration biopsy to be done by radiologist here at [facility] to make sure he does not have a malignant thyroid nodule. He was told to quit smoking cigarettes. He was told that the nicotine patches 21 mg per day is over the counter and he will continue with that for 3 weeks and 14 mg every day for 3 weeks and 7 mg patch every day for 3 weeks and stop the nicotine patch and he was told not to smoke while he is on a nicotine patch. Make an appointment to see Dr. Chan in the office next week and Dr. Bishop in 2 weeks. He will be on Zithromax 250 mg every day for 2 more days. He will also be dismissed on multiple vitamin. JOSE CHAN MD DR: ANNA/sarah JOB#: [id number] / [id number]
--- NOTE | 2019-04-08 13:41 | NUR ---
Discharge Note: YADIRA ARMIJO [address] Discharge instructions and discharge home medications reviewed with Patient and a copy given. All questions have been answered and understanding verbalized. The following instructions and handouts were given: follow up instructions, prescriptions for Zithromax, Prednisone, Combivent Inhaler, Duonebs nebulizer. Discontinued lines and drains: 20G Left AC, tip intact. Patient tolerated well. Patient discharged to home with self care via family.
--- NOTE | 2019-04-08 14:03 | NUR ---
SW faxed 02 orders to [employer] and approved. Pt is provided with a tank to take home and is provided with instruction to call [employer] when he gets home so they can set him up with 02 equipment. Discussed with RN. Pt's daughter also in room and verbalized understanding.
== END 2019-04-08 14:10 | disposition home or self-care (01) | DRG 189 ==
LOC: ER 08:47 → 6 SOUTH 10:14
PROVIDERS: ADMIT Internal Medicine; ATTEND Internal Medicine
DX: J96.01 Acute respiratory failure with hypoxia (principal); J44.0 Chronic obstructive pulmonary disease with (acute) lower respiratory infection; J44.1 Chronic obstructive pulmonary disease with (acute) exacerbation; J20.9 Acute bronchitis, unspecified; F17.210 Nicotine dependence, cigarettes, uncomplicated; E04.1 Nontoxic single thyroid nodule; R91.1 Solitary pulmonary nodule; I71.2 Thoracic aortic aneurysm, without rupture; J98.4 Other disorders of lung
CPT/HCPCS: 36415; 71046; 71250; 76536; 80048; 80053; 80061; 82550; 83605; 83880; 84484; 85007; 85025; 87040; 87804; 90471; 90686; 93005; 93306; 94618; 94640; 94760; 96361; 96374; 96375; J0696; J2920; J2930; J7030; J7620; J7626; Q0144; 97530; 99285-25; G0378

== ENCOUNTER → 2019-04-17 | Outpatient (CLI) | payer MEDICARE ==
[2019-04-08 11:30] VITALS: BP 126/66
[~2019-04-17] MED LIST: AZIT250T6 PO; IPRA3AMP29 NEB; MULT1TAB90 PO; PRED-220 PO
--- NOTE | 2019-04-17 10:43 | RAD ---
Examination: US GUID NDL PLACE/ASPI/BX, US GUID NDL PLACE/ASPI/BX History: Thyroid nodule Comparison/Correlation: 04/07/2019 thyroid ultrasound exam Findings: Risks and benefits of ultrasound-guided fine-needle aspiration of thyroid nodules were discussed with the patient and informed consent was obtained. Considering there is possible that there are 2 separate right thyroid nodules and to ensure adequate sampling, one of which has a calcified component at the interpolar region and adjacent inferior pole nodule with cystic component, a total of 8 passes were made with 8 separate syringes. A total of 4 passes were made into each nodule. Cleansing with ChloraPrep at the right side of the neck and upper chest was performed. Sterile probe cover and sterile gel was utilized. A total of 8 cc 1 percent lidocaine was administered with ultrasound guidance at the right thyroid interpolar level. A total of 4 passes were made and samples were provided to the chemical laboratory scientist present. 5 cc 1 percent lidocaine was administered more inferiorly and total of 4 passes into the more inferior cystic lesion. The fluid within the cystic component was inadvertently partially aspirated. Patient tolerated procedure well without immediate complications. The acquired samples were reportedly adequate by the chemical laboratory scientist present. Impression: Successful fine-needle aspiration of the patient's right thyroid nodules. Electronically signed by: Christiano Jorge MD (04/17/2019 10:40 AM) [facility]
--- NOTE | 2019-04-17 10:43 | RAD ---
Examination: US GUID NDL PLACE/ASPI/BX, US GUID NDL PLACE/ASPI/BX History: Thyroid nodule Comparison/Correlation: 04/07/2019 thyroid ultrasound exam Findings: Risks and benefits of ultrasound-guided fine-needle aspiration of thyroid nodules were discussed with the patient and informed consent was obtained. Considering there is possible that there are 2 separate right thyroid nodules and to ensure adequate sampling, one of which has a calcified component at the interpolar region and adjacent inferior pole nodule with cystic component, a total of 8 passes were made with 8 separate syringes. A total of 4 passes were made into each nodule. Cleansing with ChloraPrep at the right side of the neck and upper chest was performed. Sterile probe cover and sterile gel was utilized. A total of 8 cc 1 percent lidocaine was administered with ultrasound guidance at the right thyroid interpolar level. A total of 4 passes were made and samples were provided to the laboratory cureman present. 5 cc 1 percent lidocaine was administered more inferiorly and total of 4 passes into the more inferior cystic lesion. The fluid within the cystic component was inadvertently partially aspirated. Patient tolerated procedure well without immediate complications. The acquired samples were reportedly adequate by the laboratory cureman present. Impression: Successful fine-needle aspiration of the patient's right thyroid nodules. Electronically signed by: Christiano Jorge MD (04/17/2019 10:40 AM) [facility]
--- NOTE | 2019-04-22 13:07 | PATHOLOGY ---
Note [facility] Accession Number: [id number] TESTS RESULT FLAG UNITS REF RANGE LAB Clinician Provided Cytology Information No. of containers..01 Other (Miscellaneous) Source: RT SUP THYROID FNA DIAGNOSIS: RT SUP THYROID FNA NEGATIVE FOR MALIGNANT CELLS. BETHESDA CATEGORY II. SPECIMEN CONSISTS OF ABUNDANT BENIGN FOLLICULAR CELLS, HEMOSIDERIN-LADEN MACROPHAGES, COLLOID AND BLOOD. 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 THIS EVALUATION INCLUDES EXAMINATION OF A CELL BLOCK. Pathologist ICD10: 02 E04.1 Signed out by: Jeanmarie Adams MD, Pathologist NPI- [id number] Performed by: Sally Arndt, Rn Medical Inpatient Services ([facility]) Gross description: 30 ML, CLEAR/BOB, 2AF 2AD 2D /LCS 04/17/2019 1710 Local FLAG LEGEND: L-Low Normal,H-High Normal,LL-Alert Low,HH-Alert High <-Panic Low,>-Panic High,A-Abnormal,AA-Critical Abnormal Performed at: [facility] [address] [place] [address] Praveen Eddy MD, 02 [facility] [address] [place] [address] Jeanmarie Adams MD, Specimen Comment: A courtesy copy of this report has been sent to [phone], [phone] Specimen Comment: [id number] Specimen Comment: [id number] Specimen Comment: Report sent to / DR TOBAR Performed at: [address], [place], [place] [id number] MD Praveen Eddy MD Phone: [phone]
--- NOTE | 2019-04-22 14:06 | PATHOLOGY ---
Note [facility] Accession Number: [id number] TESTS RESULT FLAG UNITS REF RANGE LAB Clinician Provided Cytology Information No. of containers..01 Other (Miscellaneous) Source: RT INFER. THYROID DIAGNOSIS: RT INFER. THYROID INADEQUATE, INSUFFICIENT CELLS FOR STUDY. BETHESDA CATEGORY I. UNSATISFACTORY. Signed out by: Jeanmarie Adams MD, Pathologist NPI- [id number] Performed by: Sally Arndt, Spreader Box Operator ([facility]) Gross description: 01 30ML, CLEAR/BOB, 6 SLIDES /LCS 04/17/2019 1712 Local FLAG LEGEND: L-Low Normal,H-High Normal,LL-Alert Low,HH-Alert High <-Panic Low,>-Panic High,A-Abnormal,AA-Critical Abnormal Performed at: [address] [place] [address] Praveen Eddy MD, 02 [facility] [address] [place] [address] Jeanmarie Adams MD, Specimen Comment: [id number] Performed at: [address], [place], [place] [id number] MD Praveen Eddy MD Phone: [phone]
== END | disposition home or self-care (01) ==
LOC: US 08:08
PROVIDERS: ATTEND Internal Medicine
DX: E04.1 Nontoxic single thyroid nodule (principal)
CPT/HCPCS: 10005; 10006; 60300; 76942; 88173; 88305

== ENCOUNTER → 2019-08-29 | Outpatient (CLI) | payer MEDICARE ==
--- NOTE | 2019-08-29 09:12 | RAD ---
Examination: CT chest without contrast HISTORY: History of lung nodule COMPARISON: 04/06/2019 TECHNIQUE: Axial CT images of the chest were performed without contrast. Coronal and sagittal reformats are performed Exposure: One or more of the following individualized dose reduction techniques were utilized for this examination: 1. Automated exposure control 2. Adjustment of the mA and/or kV according to patient size 3. Use of iterative reconstruction technique FINDINGS: There is a 2.1 cm hypodense nodule identified in the right lobe of the thyroid gland. The central airways are patent. Coronary artery calcifications identified. The ascending aorta measures 4 cm in transverse dimension. No radiologically there is a small nodule identified in the right apical lung measuring 5 mm similar to prior exam. There is a 5.5 mm nodule identified in the right middle lobe lung similar to prior exam. Mild bilateral lung emphysematous changes. The visualized noncontrasted liver, spleen, adrenals grossly appears unremarkable. No radiologically significant mediastinal lymphadenopathy is identified. Mild degenerative changes thoracic spine. Unchanged 2 mm punctate intrarenal collecting system calculus right kidney. IMPRESSION: 1. Unchanged pulmonary nodules similar to prior exam. 2. Mild emphysematous changes bilateral lungs. 3. 2 cm hypodense nodule right lobe of thyroid gland is unchanged. Electronically signed by: Floyd Mirza MD (08/29/2019 9:08 AM) [id number]
== END ==
LOC: CT 07:45
PROVIDERS: ATTEND Internal Medicine Critical Care Medicine
DX: R91.8 Other nonspecific abnormal finding of lung field (principal); J43.9 Emphysema, unspecified; N20.0 Calculus of kidney; I25.10 Atherosclerotic heart disease of native coronary artery without angina pectoris
CPT/HCPCS: 71250

== ENCOUNTER → 2020-09-30 | Outpatient (CLI) | payer MEDICARE ==
[~2020-09-30] MED LIST changes: -MULT1TAB90 PO; +MULT1TAB92 PO
--- NOTE | 2020-09-30 13:52 | RAD ---
CT of the chest without contrast 09/30/2020 INDICATION: Follow-up lung nodule COMPARISON STUDY: CT of the chest without contrast August 29, 2019 TECHNIQUE: Multidetector CT imaging of the chest was performed without contrast. FINDINGS: Heart size is normal. Coronary calcification again noted. Calcified subcarinal lymph node n oted. Calcified right hilar lymph nodes also noted. The appearance is consistent with prior granuloma tous disease. No pathologically enlarged mediastinal adenopathy is seen. Bovine configuration of the aortic arch noted. Prominence of the right thyroid gland with area of calcification is seen, similar to prior exam. Prior thyroid ultrasounds noted. There are scattered punctate 1 to 2 mm nodules in the right upper lobe, unchanged. There is a rounded nodule in the right lower lobe, which appears to slightly increased in size from 6 mm to 8 mm in the interim since exam from August 29, 2019. No new nodules are seen. No focal infiltrates, pneumothorax, or effusion is seen. No acute osseous ch anges are identified. IMPRESSION: 1. Right lower lobe pulmonary nodule, with minimal apparent increase in size since comparison study. Options include PET CT, or biopsy , though the lesion is borderline in size for either. 2. Other scattered punctate nodules are grossly stable. CT DOSING PQRS STATEMENT: One or more of the following individualized dose reduction techniques were utilized for this examinat ion: 1. Automated exposure control 2. Adjustment of the mA and/or kV according to patient size 3. Use of iterative reconstruction technique Electronically signed by: Jw Walker MD (09/30/2020 1:49 PM) [id number]
== END ==
LOC: CT 09:48
PROVIDERS: ATTEND Internal Medicine Critical Care Medicine
DX: R91.1 Solitary pulmonary nodule (principal)
CPT/HCPCS: 71250

== ENCOUNTER → 2020-10-29 | Outpatient (CLI) | payer MEDICARE ==
--- NOTE | 2020-10-29 15:21 | RAD ---
EXAMINATION: NM PET/CT SKULL BASE TO MID THIGH CLINICAL HISTORY: Right lower lobe pulmonary nodule TECHNIQUE: Approximately 60 minutes following the IV administration of F-18 FDG (16.96 mCi of F-18 FD G), PET and non contrast CT images were acquired from the skull base through th mid thighs. PET image s were reconstructed with and without attenuation correction using attenuation coefficients. CT image s obtained for attenuation correction and anatomic localization, they are not of diagnostic quality a nd are not intended to diagnose disease independently of the PET. - Blood Glucose: 100 mg/dL CT Dose Reduction Employed: One or more of the following individualized dose reduction techniques wer e utilized for this examination: 1. Automated exposure control 2. Adjustment of the mA and/or kV ac cording to patient size 3. Use of iterative reconstruction technique. COMPARISON: CT chest 09/30/2020 FINDINGS: NECK: No suspicious FDG avid focus or FDG avid lymphadenopathy visualized. Partially calcified nodular thyr oid gland with no suspicious focal FDG uptake. CHEST: No suspicious FDG avid focus or FDG avid lymphadenopathy visualized. 8mm pulmonary nodule in the ante rolateral right lower lobe without associated uptake. Motion degraded images otherwise demonstrate si milar-appearing chronic changes including old calcified granulomatous disease. ABDOMEN/PELVIS: No suspicious FDG avid focus or FDG avid lymphadenopathy visualized. Small old calcified granulomas i n the spleen. Bilateral nonobstructive nephrolithiasis. EXTREMITIES/SKELETON: No suspicious FDG avid focus visualized. Diffuse low level uptake in the spine, nonspecific. Multilev el uptake in the bilateral shoulders likely related to degenerative changes. IMPRESSION: No suspicious FDG avid foci or FDG avid lymphadenopathy visualized. Nonspecific 8 mm pulmonary nodule in the right lower lobe without associated FDG uptake. Of note, thi s nodule is borderline in size for adequate detection of metabolic activity via PET and therefore mal ignancy is not excluded. If there are risk factors for malignancy and/or clinical suspicion remains h igh, tissue sampling could be considered for further evaluation. Electronically signed by: Edis Richardson DO (10/29/2020 3:18 PM) [id number]
== END ==
LOC: PETSC 09:41
PROVIDERS: ATTEND Internal Medicine Critical Care Medicine
DX: R91.1 Solitary pulmonary nodule (principal); N20.0 Calculus of kidney; E04.1 Nontoxic single thyroid nodule
CPT/HCPCS: 78815; A9552

== ENCOUNTER → 2020-12-17 | Outpatient (CLI) | payer MEDICARE ==
--- NOTE | 2020-12-17 11:14 | RAD ---
CT [facility] WO dated 12/17/2020 9:38 AM Indication:Reason: LUNG NODULE / Spl. Instructions: / History: Comparison: CT 09/30/2020. Technique: Helical noncontrast images were performed. One or more of the following individualized dose reduction techniques were utilized for this examinat ion: 1. Automated exposure control 2. Adjustment of the mA and/or kV according to patient size 3. Use of iterative reconstruction technique Findings: A well-defined nodule in the lateral right lower lobe has not changed appreciably. No significant new pulmonary parenchymal abnormality is seen. The central airways show no obstruction. No enlarged lymp h nodes are seen. A right thyroid nodule has not changed appreciably. Images through the upper abdomen show no abnormality. IMPRESSION: Stable appearance of right lung nodule. No significant new findings. Electronically signed by: Raymond Troncoso Jr., MD (12/17/2020 11:12 AM) [id number]
== END ==
LOC: CT 09:23
PROVIDERS: ATTEND Internal Medicine Critical Care Medicine
DX: R91.1 Solitary pulmonary nodule (principal); E04.1 Nontoxic single thyroid nodule
CPT/HCPCS: 71250